=== PATIENT | male | born 1985 | race African-American/Black ===

== ENCOUNTER 2018-07-10 17:18 | Emergency (ER) | payer SELFPAY ==
[2018-07-10] MEDS ORDERED: Adacel (T-DAP) 0.5 ML VIAL ONE (17:42)
[2018-07-10] MEDS ORDERED: Lidocaine 1% (PF) 30 ML VIAL ONE (17:42)
== END 2018-07-10 18:47 | disposition home or self-care (01) ==
LOC: ERS 17:18
DX: S51.812A Laceration without foreign body of left forearm, initial encounter (principal); S61.211A Laceration without foreign body of left index finger without damage to nail, initial encounter; F17.210 Nicotine dependence, cigarettes, uncomplicated; Z23 Encounter for immunization; W25.XXXA Contact with sharp glass, initial encounter
CPT/HCPCS: 12002; 90471; 90715; J2001

== ENCOUNTER 2018-07-21 13:01 | Emergency (ER) | payer SELFPAY | END 2018-07-21 16:42 | disposition home or self-care (01) | LOC: ERS 13:01 | DX: S51.812D Laceration without foreign body of left forearm, subsequent encounter (principal); S61.211D Laceration without foreign body of left index finger without damage to nail, subsequent encounter; F17.210 Nicotine dependence, cigarettes, uncomplicated; W25.XXXD Contact with sharp glass, subsequent encounter ==

== ENCOUNTER 2019-05-15 09:23 | Emergency (ER) | payer SELFPAY ==
[2019-05-15] MEDS ORDERED: Acetaminophen 500 MG TAB ONE (09:58)
[2019-05-15] MEDS ORDERED: Ketorolac Tromethamine 60 MG/2 ML VIAL ONE (09:58)
== END 2019-05-15 10:18 | disposition home or self-care (01) ==
LOC: ERS 09:23
DX: K02.9 Dental caries, unspecified (principal); K05.10 Chronic gingivitis, plaque induced; F17.210 Nicotine dependence, cigarettes, uncomplicated
CPT/HCPCS: 96372; 99282; J1885

== ENCOUNTER 2022-07-16 16:00 | Emergency (ER) | payer OTHER, SELFPAY ==
[2022-07-16] MEDS ORDERED: predniSONE 20 MG TAB ONE (17:04)
== END 2022-07-16 17:16 | disposition home or self-care (01) ==
LOC: ERS 16:00
DX: R21 Rash and other nonspecific skin eruption (principal)
CPT/HCPCS: 99282; J7512

== ENCOUNTER 2022-12-05 14:57 | Emergency (ER) | payer OTHER ==
[2022-12-05] MEDS ORDERED: Cyclobenzaprine 10 MG TAB ONE (16:30)
[2022-12-05] MEDS ORDERED: Ketorolac Tromethamine 30 MG/ML VIAL ONE ×2 (16:30)
== END 2022-12-05 16:53 | disposition home or self-care (01) ==
LOC: ERS 14:57
DX: M54.50 Low back pain, unspecified (principal); I10 Essential (primary) hypertension; F17.210 Nicotine dependence, cigarettes, uncomplicated
CPT/HCPCS: 72100; 96372; J1885

== ENCOUNTER 2023-07-25 21:10 | Emergency (ER) | payer OTHER | END 2023-07-26 00:01 | disposition home or self-care (01) | LOC: ERS 21:10 | DX: K04.7 Periapical abscess without sinus (principal); I10 Essential (primary) hypertension; E11.9 Type 2 diabetes mellitus without complications; F17.210 Nicotine dependence, cigarettes, uncomplicated; Z79.4 Long term (current) use of insulin; Z79.899 Other long term (current) drug therapy | CPT/HCPCS: 99282 ==

== ENCOUNTER 2024-03-27 09:45 | Emergency (ER) | payer OTHER, SELFPAY ==
[2024-03-27] MEDS ORDERED: Acetaminophen 500 MG TAB ONE (10:36)
[2024-03-27] MEDS ORDERED: Dexamethasone 10 MG/ML VIAL ONE (10:37)
== END 2024-03-27 10:50 | disposition home or self-care (01) ==
LOC: ERS 09:45
DX: U07.1 COVID-19 (principal); I10 Essential (primary) hypertension; E11.9 Type 2 diabetes mellitus without complications; E78.5 Hyperlipidemia, unspecified; F17.210 Nicotine dependence, cigarettes, uncomplicated; Z79.4 Long term (current) use of insulin; Z79.899 Other long term (current) drug therapy
CPT/HCPCS: 99282; J1100